=== PATIENT | male | born 1930 | race Two or more races ===

== ENCOUNTER 2018-01-02 11:27 | Emergency (ER) | payer MEDICARE, OTHER ==
[~2018-01-02] VITALS: Ht 170.2 cm; Wt 54.5 kg
[2018-01-02] MEDS ORDERED: ATEN25TA PO (11:52)
[2018-01-02] MEDS ORDERED: LISI-660 PO (11:52)
[2018-01-02 11:53] LABS: GLUCOSE,POINT OF CARE 98 MG/DL (70-110)
[2018-01-02 12:21] LABS: BASOPHILS % (AUTO) 0.2 % (0.0-2.0); EOSINOPHILS % (AUTO) 1.9 % (1.0-6.0); HEMATOCRIT 34.4 % (41-53); HEMOGLOBIN 11.7 g/dL (13.5-17.5); MEAN CORPUSCULAR HEMOGLOBIN 29.8 pg (26.0-34.0); MEAN CORPUSCULAR VOLUME 88 fL (80-100); MONOCYTES # (AUTO) 0.1 K/uL (0.1-1.0); MONOCYTES % (AUTO) 1.7 % (2.0-9.0); NEUTROPHILS # (AUTO) 2.9 K/uL (1.8-7.7); NEUTROPHILS % (AUTO) 40.2 % (40.0-70.0); RED BLOOD CELL COUNT(AUTO) 3.93 MIL/uL (4.50-5.90); RED CELL DISTRIBUTION WIDTH 15.1 % (11.5-14.5)
[2018-01-02 12:31] LABS: ANION GAP 6 mmol/L (8-16); CALCIUM, TOTAL 8.6 mg/dL (8.8-10.5); CARBON DIOXIDE 28 mmol/L (22-29); CHLORIDE 104 mmol/L (98-107); CREATININE 1.03 mg/dL (0.60-1.30); GLOMERULAR FILTR. RATE CALC > 60 mL/min (>60); GLUCOSE,RANDOM 108 mg/dL (70-110); POTASSIUM 3.8 mmol/L (3.5-5.1); SODIUM SERUM 138 mmol/L (136-145); UREA NITROGEN, BLOOD 17 mg/dL (7-18)
[2018-01-02 12:37] LABS: ALANINE AMINOTRANSFERASE 27 U/L (12-78); ALBUMIN 3.6 g/dL (3.4-5.0); ALKALINE PHOSPHATASE 92 U/L (46-116); ASPARTATE AMINOTRANSFERASE 29 U/L (15-37); BILIRUBIN,TOTAL 1.5 mg/dL (0.1-1.0); LIPASE 149 U/L (73-393); TOTAL PROTEIN, SERUM 6.8 g/dL (6.4-8.2)
[2018-01-02 12:38] LABS: PLATELET COUNT (AUTO) 94 K/uL (150-450)
[2018-01-02 12:46] LABS: B-TYPE NATRIURETIC PEPTIDE 43 pg/mL (0-100)
[2018-01-02 14:08] VITALS: BP 70/36
== END 2018-01-02 14:39 | disposition home or self-care (01) ==
LOC: EMS 11:32
DX: R55 Syncope and collapse (principal); I50.9 Heart failure, unspecified; Z88.6 Allergy status to analgesic agent
CPT/HCPCS: 82948; 93005; 99285